=== PATIENT | male | born 1985 | race Hispanic/Latino ===

== ENCOUNTER 2019-10-08 15:30 | Emergency (ER) | payer SELFPAY ==
[2019-10-08] MEDS ORDERED: Lidocaine 2% w/Epinephrine 1:200K 20 ML VIAL ONE (15:35)
[2019-10-08] MEDS ORDERED: Bacitracin 1 PK ONE (16:09)
[2019-10-08] MEDS ORDERED: Cephalexin 250 MG CAP ONE (16:10)
== END 2019-10-08 16:31 | disposition home or self-care (01) ==
LOC: BURERS 15:30
DX: S71.111A Laceration without foreign body, right thigh, initial encounter (principal); W27.0XXA Contact with workbench tool, initial encounter; Y99.0 Civilian activity done for income or pay
CPT/HCPCS: 12004